=== PATIENT | male | born 1950 | race African-American/Black ===

== ENCOUNTER 2016-12-29 02:27 | Emergency (ER) | payer OTHER, MEDICAID ==
[~2016-12-29] VITALS: Ht 172.7 cm; Wt 70.0 kg
[2016-12-29 02:29] VITALS: Ht 172.7 cm; Wt 70.0 kg
--- NOTE | 2016-12-29 02:45 | ERD ---
ER Documentation Chief Complaint Date/Time DATE: 12/29/16 TIME: 02:43 Chief Complaint left leg pain x 4 days, denies injury HPI 66-year-old male presents here in emergency department for complaints of left knee pain for 4 days, started as a left lower back pain radiating to the left knee, described the pain as sharp pain, 7/10 scale, is worse upon movement. Patient states that it woke him up today. Patient denies any numbness or tingling. Patient denies any fever or chills. Patient denies any direct trauma on affected area. Patient denies any incontinence. Patient took ibuprofen for pain with mild relief. ROS All systems reviewed and are negative except as per history of present illness. Medications Home Meds Reported Medications [none] Unknown Strength No Conflict Check 12/29/16 Allergies Allergies: Coded Allergies: No Known Allergy (Unverified , 12/29/16) PMhx/Soc Medical and Surgical Hx: pt denies Medical Hx, pt denies Surgical Hx FmHx Family History: No coronary disease, No diabetes, No other Physical Exam Vitals Vital Signs Date Time Temp Pulse Resp B/P Pulse Ox O2 Delivery O2 Flow Rate FiO2 12/29/16 02:29 98.3 68 20 175/98 98 Physical Exam GENERAL: The patient is well developed and appropriate for usual state of health, in no apparent distress. CHEST: Clear to auscultation bilaterally. There are no rales, wheezes or rhonchi. HEART: Regular rate and rhythm. No murmurs, clicks, rubs or gallops. No S3 or S4. ABDOMEN: Soft, nontender and nondistended. Good bowel sounds. No rebound or guarding. No gross peritonitis. No gross organomegaly or masses. No Nielsen sign or McBurney point tenderness. BACK: No midline or flank tenderness. Mild tenderness on palpation on the left lower back with positive straight leg test. EXTREMITIES: Noted tenderness on palpation the patellar aspect of the left knee , able to do full range of motion without any restriction, no erythema, no swelling. Equal pulses bilaterally. Full range of motion of other joints of the body. Grossly neurovascularly intact. NEURO: Alert and oriented. Cranial nerves 2-12 intact. Motor strength in all 4 extremities with 5/5 strength. Sensation grossly intact. Normal speech and gait. SKIN: There is no apparent rash or petechia. The skin is warm and dry. HEMATOLOGIC AND LYMPHATIC: There is no evidence of excessive bruising or lymphedema. No gross cervical, axillary, or inguinal lymphadenopathy. Results 24 hrs Current Medications Medications (Trade) Dose Ordered Sig/Vesta Route PRN Reason Start Time Stop Time Status Last Admin Dose Admin Tramadol HCl (Ultram) 50 mg ONCE ONCE PO 12/29/16 03:00 12/29/16 03:01 DC 12/29/16 02:48 Patient was given medication for pain here in emergency department, after treatment, patient verbalized feeling much better. Patient's pain is improved. PROCEDURE: XR Knee. CLINICAL INDICATION: Trauma TECHNIQUE: AP, lateral and oblique view of the left knee were obtained. COMPARISON: There are no similar studies submitted for comparison. FINDINGS: There is normal mineralization.There is no acute fracture or dislocation.No destructive lesion is identified. There is no joint effusion. IMPRESSION: No fracture or dislocation. RPTAT: HIKT .Keyur Topete MD, MD Date Time Electronically viewed and signed by .Keyur Topete MD, MD on 12/29/2016 04:42 PROCEDURE: CT Lumbar Spine without contrast. CLINICAL INDICATION: Back pain. TECHNIQUE: CT scan of the lumbar spine was performed on a multi-detector high -resolution CT scanner. Contiguous axial images were obtained without intravenous contrast. Coronal and sagittal reformatted images were also obtained. Images were reviewed on the PACS workstation. One or more of the following dose reduction techniques were used: - Automated exposure control. - Adjustment of the mA and/or kV according to patient size. - Use of iterative reconstruction technique. Exam CTD/vol = 11.02 mGy. Total exam DLP = 379.71 mGy-cm. COMPARISON: None. FINDINGS: There is straightening of the lumbar lordosis. Lumbar vertebral body heights and alignment are within normal limits. There is no acute fracture or subluxation. There are small to moderate marginal osteophytes at multiple levels. At T12-L1, the disk height is within normal limits. There is no central canal or neural foraminal stenosis. At L1-L2, there is minimal loss of disk height and a mild diffuse disk bulge. There is no central canal or neural foraminal stenosis. At L2-L3, there is minimal loss of disk height and a mild diffuse disk bulge resulting in mild central canal stenosis. There is mild bilateral neural foraminal stenosis. At L3-L4, there is mild loss of disk height and a mild to moderate diffuse disk bulge resulting in moderate central canal stenosis. There is moderate to severe bilateral neural foraminal stenosis. At L4-L5, there is moderate loss of disk height. There are erosive endplate changes. There is a moderate diffuse disk osteophyte complex which combined with mild facet and ligamentum flavum hypertrophy results in severe central canal stenosis. There is severe bilateral neural foraminal stenosis. At L5-S1, there is mild posterior loss of disk height. There is a mild diffuse disk bulge which combined with mild bilateral facet and ligamentum flavum hypertrophy results in mild to moderate central canal stenosis. There is severe bilateral neural foraminal stenosis. There is no paraspinal mass or collection. There are scattered atherosclerotic calcifications of the abdominal aorta. IMPRESSION: No acute fracture or subluxation. At L4-L5, there is moderate loss of disk height and erosive endplate changes which could be related to degenerative disk disease or prior osteomyelitis/ diskitis. There is a moderate diffuse disk osteophyte complex which combined with mild facet and ligamentum flavum hypertrophy results in severe central canal stenosis. There is severe bilateral neural foraminal stenosis. At L3-L4, there is mild loss discogenic disease and a mild to moderate diffuse disk bulge resulting in moderate central canal stenosis. There is moderate to severe bilateral neural foraminal stenosis. At L5-S1, there is a mild diffuse disk bulge which combined with mild bilateral facet and ligamentum flavum hypertrophy results in mild to moderate central canal stenosis. There is severe bilateral neural foraminal stenosis. Vascular calcifications reflective of atherosclerosis. .Jeff Berger MD, MD Date Time Electronically viewed and signed by .Jeff Berger MD, MD on 12/29/2016 05:12 .T/ CC: YAYA MILLS [employer] Procedures/MDM Medical Decision Making: Patient's pain is most likely consistent with a back pain, denies headache, most likely from degenerative disc disease, patient's left knee pain nonspecific, possible knee sprain, can be also from the sciatica. There is no suspicion for neurovascular compromise. Patient has intact sensation and circulation of the affected extremity and distal extremities. Low suspicion for any osteomyelitis. No incontinence, no suspicion for cauda equina syndrome, no saddle anesthesia, no symptoms of any acute bacterial infection, no symptoms of any perirectal abscesses, pilonidal cyst.There is low suspicion for septic arthritis. Patient does not have any fever. No symptoms of any aortic dissection or aortic aneurysm. Radiology exam shows degenerative disc disease but does not show any fractures or dislocation. Disposition: Home. Patient is given prescription for ibuprofen for mild to moderate pain, [place] for severe pain, Flexeril for muscle spasm. Patient was advised to avoid heavy lifting , apply warm compresses on affected area. Patient was advised that if symptoms are worse, numbness, tingling, high fever, unable to move joint, worsening symptoms, to return to emergency department immediately. Otherwise, patient is advised to follow up with the primary care doctor in 5-7 days for reevaluation of symptoms. Disclaimer: Inadvertent spelling and grammatical errors are likely due to EHR/ dictation software use and do not reflect on the overall quality of patient care. Also, please note that the electronic time recorded on this note does not necessarily reflect the actual time of the patient encounter. Departure Diagnosis: Primary Impression: Back pain Back pain location: low back pain Chronicity: acute Back pain laterality: left Sciatica presence: with sciatica Sciatica laterality: sciatica of left side Qualified Code: M54.42 - Acute left-sided low back pain with left-sided sciatica Additional Impressions: Degenerative disc disease Spinal region: lumbosacral Qualified Code: M51.37 - Degeneration of intervertebral disc of lumbosacral region Knee pain Laterality: left Chronicity: acute Qualified Code: M25.562 - Acute pain of left knee Condition: Stable Patient Instructions: Back Pain W/ Sciatica, Knee Pain, Uncertain Cause Additional Instructions: . Patient is given prescription for ibuprofen for mild to moderate pain, [place] for severe pain, Flexeril for muscle spasm. Patient was advised to avoid heavy lifting , apply warm compresses on affected area. Patient was advised that if symptoms are worse, numbness, tingling, high fever, unable to move joint, worsening symptoms, to return to emergency department immediately. Otherwise, patient is advised to follow up with the primary care doctor in 5-7 days for reevaluation of symptoms. YAYA MILLS NP Dec 29, 2016 02:45
[2016-12-29] MEDS ORDERED: traMADol 50 MG TAB PO ONE (03:00)
--- NOTE | 2016-12-29 04:43 | RADRPT ---
PROCEDURE: XR Knee. CLINICAL INDICATION: Trauma TECHNIQUE: AP, lateral and oblique view of the left knee were obtained. COMPARISON: There are no similar studies submitted for comparison. FINDINGS: There is normal mineralization.There is no acute fracture or dislocation.No destructive lesion is id entified. There is no joint effusion. IMPRESSION: No fracture or dislocation. RPTAT: HIKT .Keyur Topete MD, MD Date Time Electronically viewed and signed by .Keyur Topete MD, MD on 12/29/2016 04:42 .T/
--- NOTE | 2016-12-29 05:12 | RADRPT ---
PROCEDURE: CT Lumbar Spine without contrast. CLINICAL INDICATION: Back pain. TECHNIQUE: CT scan of the lumbar spine [facility] Contiguous axial images were obtained without intravenous contrast. Coronal and sagittal refor matted images were also obtained. Images were reviewed on the PACS workstation. One or more of the following dose reduction techniques were used: - Automated exposure control. - Adjustment of the mA and/or kV according to patient size. - Use of iterative reconstruction technique. Exam CTD/vol = 11.02 mGy. Total exam DLP = 379.71 mGy-cm. COMPARISON: None. FINDINGS: There is straightening of the lumbar lordosis. Lumbar vertebral body heights and alignment are with in normal limits. There is no acute fracture or subluxation. There are small to moderate marginal o steophytes at multiple levels. At T12-L1, the disk height is within normal limits. There is no central canal or neural foraminal s tenosis. At L1-L2, there is minimal loss of disk height and a mild diffuse disk bulge. There is no central c anal or neural foraminal stenosis. At L2-L3, there is minimal loss of disk height and a mild diffuse disk bulge resulting in mild centr al canal stenosis. There is mild bilateral neural foraminal stenosis. At L3-L4, there is mild loss of disk height and a mild to moderate diffuse disk bulge resulting in m oderate central canal stenosis. There is moderate to severe bilateral neural foraminal stenosis. At L4-L5, there is moderate loss of disk height. There are erosive endplate changes. There is a mo derate diffuse disk osteophyte complex which combined with mild facet and ligamentum flavum hypertro phy results in severe central canal stenosis. There is severe bilateral neural foraminal stenosis. At L5-S1, there is mild posterior loss of disk height. There is a mild diffuse disk bulge which com bined with mild bilateral facet and ligamentum flavum hypertrophy results in mild to moderate centra l canal stenosis. There is severe bilateral neural foraminal stenosis. There is no paraspinal mass or collection. There are scattered atherosclerotic calcifications of the abdominal aorta. IMPRESSION: No acute fracture or subluxation. At L4-L5, there is moderate loss of disk height and erosive endplate changes which could be related to degenerative disk disease or prior osteomyelitis/diskitis. There is a moderate diffuse disk oste ophyte complex which combined with mild facet and ligamentum flavum hypertrophy results in severe ce ntral canal stenosis. There is severe bilateral neural foraminal stenosis. At L3-L4, there is mild loss discogenic disease and a mild to moderate diffuse disk bulge resulting in moderate central canal stenosis. There is moderate to severe bilateral neural foraminal stenosis . At L5-S1, there is a mild diffuse disk bulge which combined with mild bilateral facet and ligamentum flavum hypertrophy results in mild to moderate central canal stenosis. There is severe bilateral n eural foraminal stenosis. Vascular calcifications reflective of atherosclerosis. .Jeff Berger MD, Date Time Electronically viewed and signed by .Jeff Berger MD, MD on 12/29/2016 05:12 .T/
[2016-12-29] MEDS ORDERED: CYCL-319 PO (05:18)
[2016-12-29] MEDS ORDERED: IBUP-1542 PO (05:18)
[2016-12-29] MEDS ORDERED: HYDR-906 PO (05:18)
[2016-12-29 05:34] VITALS: BP 186/107; PULSE 58; RESP 15; TEMP 98.4
== END 2016-12-29 05:34 | disposition home or self-care (01) ==
LOC: FTE 02:27
DX: M54.42 Lumbago with sciatica, left side (principal); M51.37 Other intervertebral disc degeneration, lumbosacral region; M25.562 Pain in left knee
CPT/HCPCS: 72131; 73562

== ENCOUNTER 2019-03-07 09:23 | Emergency (ER) | payer OTHER ==
[~2019-03-07] VITALS: Ht 162.6 cm; Wt 68.3 kg
[~2019-03-07 09:23] MED LIST: ASPI-903 PO; CYCL10TA7 PO; FAMO-96 PO; HYDR-4011 PO; IBUP-1542 PO
[2019-03-07 09:37] VITALS: Ht 162.6 cm; Wt 68.3 kg
[2019-03-07 13:48] VITALS: BP 134/86; PULSE 72; RESP 16
== END 2019-03-07 13:50 | disposition home or self-care (01) ==
LOC: E/R 09:23
DX: R10.13 Epigastric pain (principal); Z86.73 Personal history of transient ischemic attack (TIA), and cerebral infarction without residual deficits
CPT/HCPCS: 71045; 74176; 80053; 83690; 84484; 85025; 93005